=== PATIENT | female | born 2000 | race Caucasian/White ===

== ENCOUNTER 2019-11-30 10:51 | Emergency (ER) | payer SELFPAY ==
[2019-11-30 11:05] VITALS: BP 129/79; PULSE 65; RESP 16; TEMP 36.7; O2SAT 98; BMI 17.2
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
== END 2019-11-30 13:16 | disposition home or self-care (01) ==
PROVIDERS: Emergency Provider Physician Assistant
DX: S16.1XXA Strain of muscle, fascia and tendon at neck level, initial encounter (principal); V89.2XXA Person injured in unspecified motor-vehicle accident, traffic, initial encounter
CPT/HCPCS: 12345; 72040; 99282

== ENCOUNTER → 2021-03-18 12:12 | Outpatient (BNVA) | payer SELFPAY | PROVIDERS: Visit Provider Nurse Practitioner | DX: R39.9 Unspecified symptoms and signs involving the genitourinary system (principal); N89.8 Other specified noninflammatory disorders of vagina | CPT/HCPCS: 81000; 87491; 87591; 87661 ==

== ENCOUNTER 2022-11-05 10:32 | Emergency (ER) | payer OTHER, SELFPAY ==
[2022-11-05 10:49] VITALS: BP 116/73; PULSE 104; RESP 16; O2SAT 100; BMI 19.5
--- NOTE | 2022-11-05 11:10 | ED_ITS ---
HPI - Back Pain/Injury General: Chief Complaint: Back Pain/Injury Stated Complaint: low back pian Time Seen by Provider: 11/05/22 11:04 History of Present Illness: Patient is a 21-year-old female comes to the ED with low back pain. Patient states that 2 days ago she was at work and bent down to get some juice out of a cooler and when she went to get up she felt a sharp pain in in the right side of her lower back. Since then she has been having right lower back pain that she rates a 5 out of 10. She went and saw her chiropractor yesterday and put her back back in place and it did improve some of her symptoms and she denies any pain radiating down her right leg. Any movement of her torso causes worsening pain. Denies any other trauma or injury to back. Denies any cauda equina symptoms. Patient is on control and denies any chance of being . Associated symptoms: Deny abdominal pain, chills, dysuria, fatigue, fever(s), hematuria, nausea or vomiting Review of Systems Const: Denies: fever(s), chills or fatigue Eyes: Denies: change in vision or eye discomfort ENMT: Denies: throat pain, odynophagia, nasal discharge or nasal congestion Card: Denies: chest pain, palpitations, edema, swelling of feet/ankles, dyspnea on exertion or orthopnea Resp: Denies: dyspnea, productive cough or non-productive cough GI: Denies: abdominal pain, nausea, vomiting, diarrhea, constipation or hematochezia : Denies: flank pain, dysuria or hematuria Musc: Reports: back pain; Denies: neck pain or extremity swelling Skin/Breast: Denies: rash or new lesions Neuro: Denies: headache(s), numbness in extremities or weakness in extremities PFSH ED 2 PFSH: Medical History (Updated 11/05/22 @ 11:18 by DELLA Parks) No pertinent family history Surgical History (Updated 11/05/22 @ 11:13 by DELLA Parks) No pertinent past surgical history Social History Smoking and tobacco status: current every day smoker (vape) e-cigarettes Physical Exam Const: COMMON NORMALS: no acute distress, patient oriented x3, healthy appearing and alert GENERAL APPEARANCE: cooperative and comfortable HENMT: COMMON NORMALS: normocephalic HEAD & SCALP: normocephalic MOUTH: Normal oral and palatal mucosa present THROAT: posterior oropharynx normal and uvula midline Neck/C-Spine: COMMON NORMALS: supple GENERAL: Yes normal visual inspection Resp: COMMON NORMALS: normal respiratory effort, No retractions, No use of accessory muscles and clear to auscultation bilaterally AUSCULTATION: clear to auscultation bilaterally Cardio: COMMON NORMALS: regular rate, regular rhythm, S1 normal heart sound present, S2 normal heart sound present, No gallops present (Cardio), No clicks present (Cardio), No murmurs present (Cardio) and Peripheral pulses 2+ throughout RATE: regular rate RHYTHM: regular rhythm HEART SOUNDS: S1 normal heart sound present and S2 normal heart sound present PERIPHERAL PULSES: Peripheral pulses 2+ throughout GI: COMMON NORMALS: Normal to inspection, nondistended, normoactive bowel sounds present, Soft to palpation, non-tender and no masses PALPATION: Yes Soft to palpation : COMMON NORMALS: Yes no CVA tenderness BLADDER/KIDNEY EXAM: Yes no CVA tenderness Back/Pelvis: COMMON NORMALS: no CVA tenderness LUMBAR SPINE/LOWER BACK: Yes pain with ROM, No lumbar spinal tenderness and Yes paraspinal muscle tenderness Lumbar paraspinal muscle tenderness: right Right lumbar paraspinal muscle tenderness: L4 and L5 OTHER: Right iliocostal lumborum muscle tenderness. Extremity: COMMON NORMALS: normal to inspection Neuro: COMMON NORMALS: patient oriented x3 SENSORIUM/ORIENTATION: Yes alert GAIT: Yes Normal gait present Skin: GENERAL SKIN EXAM: dry skin Course Vital Signs: Vital signs: Vital Signs Pulse Rate 104 H 11/05/22 10:49 Respiratory Rate 16 11/05/22 10:49 Blood Pressure 116/73 11/05/22 10:49 Pulse Oximetry 100 11/05/22 10:49 MDM - Back Pain/Injury Medical Decision Making Patient is a 21-year-old female comes to the ED with low back pain. Patient states that 2 days ago she was at work and bent down to get some juice out of a cooler and when she went to get up she felt a sharp pain in in the right side of her lower back. Since then she has been having right lower back pain that she rates a 5 out of 10. She went and saw her chiropractor yesterday and put her back back in place and it did improve some of her symptoms and she denies any pain radiating down her right leg. Any movement of her torso causes worsening pain. Denies any other trauma or injury to back. Denies any cauda equina symptoms. Patient is on control and denies any chance of being . Vital stable. No lumbar spinal tenderness. Right lumbar paraspinal muscle tenderness noted. Right iliocostal lumborum muscle tenderness. Patient was given dose of Toradol, muscle relaxer and Decadron here in the ED. She was stable for discharge home and diagnosed with a strain of lumbar region. She was sent home with a prescription for ibuprofen and muscle relaxer. Told to follow- up with her PCP in the next week for reevaluation. Return to ED precautions given. Patient understood and agreed with plan. Discharge Plan Discharge Patient Disposition: Home Clinical Impression: Strain of lumbar region Condition: Stable Prescriptions: New ibuprofen 800 mg tablet 800 mg PO Q8H PRN (Reason: pain) Qty: 20 0RF cyclobenzaprine 10 mg tablet 10 mg PO BID PRN (Reason: muscle spasm) Qty: 20 0RF No Action neomycin-polymyxin B-dexameth [Maxitrol] 3.5mg/mL-10,000 unit/mL-0.1 % drops,suspension 2 drp ophthalmic (eye) Q2H Qty: 5 0RF Isibloom 0.15-0.03 mg Tablet 1 tab PO DAILY Discharge Orders: Discharge ED (Routine); Ordered 11/05/22 Ordered By: Ahsan Armijo Discharge Diet: Regular Discharge Activity: Limit activity as instructed Patient Instructions: Low Back Strain (ED) Activity Restrictions/Additional Instructions: Follow-up with medical provider as directed in the next 5 to 7 days for reevaluation. Take medications as prescribed. Apply cold pack on sore area of back multiple times a day, stretch lower back muscles and massage sore back muscle to help with symptoms. Limit lifting to under 15 pounds for the next week and make sure to use good body mechanics when lifting. Return to the ER or your medical provider if condition worsens. Please read and understand discharge instructions. Thank you for choosing [facility] for your healthcare needs today. Please realize this is an emergency room and that we are providing you with a medical screening exam and this may not be complete and all inclusive of all the testing and or work up that you may need to determine your ailment or severity of your illness. It is very important that you follow up as instructed or that you return to the Emergency Department should you have concerns or if your condition changes or worsens in any way. Coding Level of Care Code ED Development Architect for Anand Suarez
[2022-11-05] MEDS: ketorolac 60 mg/2 mL INJ IM (11:41)
[2022-11-05] MEDS: dexamethasone 10 mg/mL INJ IM (11:41)
[2022-11-05] MEDS: methocarbamol 750 mg Tablet PO (11:41)
--- NOTE | 2022-11-06 12:59 | DCPLANNER ---
TCM called patient due to no primary care physician - patient declines at this time.
== END 2022-11-05 11:43 | disposition home or self-care (01) ==
PROVIDERS: Emergency Provider Physician Assistant
DX: S39.012A Strain of muscle, fascia and tendon of lower back, initial encounter (principal); X58.XXXA Exposure to other specified factors, initial encounter
CPT/HCPCS: 96372; 99284; J1100; J1885

== ENCOUNTER 2024-08-24 19:38 | Emergency (ER) | payer OTHER, SELFPAY ==
[2024-08-24 19:49] VITALS: BP 114/81; PULSE 75; TEMP 36.7; O2SAT 100; BMI 19.5
[2024-08-24 20:11] LABS: Basophils % 0.2 %; Eosinophils % 0.2 %; Hematocrit 40.8 % (36-47); Lymphocytes # 1.8 10^3/uL (0.8-4.8); Lymphocytes % 20.2 %; Mean Corpuscular HGB Conc 32.6 g/dL (30-55); Mean Corpuscular Volume 101.2 fl (85-98); Mean Platelet Volume 10.6 fL (7.4-10.4); Monocytes # 0.6 10^3/uL (0.2-0.9); Monocytes % 6.9 %; Neutrophils # 6.51 10^3/uL (1.8-7.7); Neutrophils % 72.1 %; Nucleated Red Blood Cells % 0 %; Platelet Count 249 10^3/cmm (157-399); Red Blood Count 4.03 10^6/uL (3.85-5.65); Red Cell Distribution Width 12.4 % (12.1-15.1); White Blood Count 9.03 10^3/uL (3.29-11.43)
[2024-08-24 20:58] LABS: Alanine Aminotransferase 13 U/L (0-33); Albumin Level 4.7 g/dL (3.5-5.2); Alkaline Phosphatase 71 U/L (35-105); Anion Gap 16.4 (5-19); Aspartate Amino Transferase 21 U/L (0-32); Blood Urea Nitrogen 8 mg/dL (6-20); Calcium 9.3 mg/dL (8.5-10.5); Carbon Dioxide 22 mmol/L (22-29); Chloride 99 mmol/L (98-107); Creatinine Clr Calc Pharmacy 103.7208; Globulin 3.4 g/dL (1.3-4.6); Glomerular Filtration Rate 122.8 mL/min (90-130); Glucose 85 mg/dL (65-115); Osmolality Calculated 276 mOsm/kg (285-295); Potassium 3.4 mmol/L (3.5-5.1); Sodium 134 mmol/L (136-145); Total Bilirubin 0.4 mg/dL (0.15-1.2); Total Protein 8.1 g/dL (6.6-8.7)
== END 2024-08-24 21:32 | disposition left against medical advice (07) ==
LOC: ER 19:46
PROVIDERS: Physician Assistant; Emergency Provider Family Medicine
DX: Z53.21 Procedure and treatment not carried out due to patient leaving prior to being seen by health care provider (principal); Z01.89 Encounter for other specified special examinations
CPT/HCPCS: 36415; 80053; 84702; 85025; 86900; 99283

== ENCOUNTER 2024-11-27 08:51 | Outpatient (CLI) | payer BC, MEDICAID, SELFPAY ==
--- NOTE | 2024-11-27 | USR_ITS ---
PROCEDURE INFORMATION: Exam: US , Limited Exam date and time: 11/27/2024 2:01 PM Age: 23 years old Clinical indication: Screening exam; Routine US, uterus; Additional info: 20 weeks of gestation TECHNIQUE: Imaging protocol: Real-time ultrasound of the maternal uterus with image documentation. Exam focused on the clinical indication. COMPARISON: No relevant prior studies available. FINDINGS: Gestation: All visualized anatomy is within normal limits as detailed in the technology worksheet. heart rate: heart rate of 137 bpm. presentation and position: The fetus is in vertex position. Placenta: The placenta is in anterior position. BIOMETRY: Gestational age (AUA): Estimated gestational age of 20 weeks and 0 days. Estimated due date (AUA): Estimated date of delivery is 04/16/2025. Biparietal diameter (BPD): Biparietal diameter of 4.6 2 cm which is within the 48.4 percentile. Head circumference (HC): Head circumference of 17.19 cm which is within the 31.2 percentile Abdominal circumference (AC): Abdominal circumference of 14.19 cm which is within the 29.6 percentile Femur length (FL): Femur length of 3.2 cm which is within the 40.8 percentile MATERNAL: Cervix: The cervix is short measuring 9.8 mm and closed. US/US OB >=14 wk fetus w transvag IMPRESSION: Limited examination as above. The cervix is short measuring 9.8 mm but it is closed.
== END 2024-11-27 08:52 | disposition home or self-care (01) ==
LOC: RADOUTREAD 11-28 08:56
PROVIDERS: Visit Provider Family Medicine
DX: Z3A.20 20 weeks gestation of pregnancy (principal)